=== PATIENT | female | born 1975 | race African-American/Black ===

== ENCOUNTER 2019-08-01 17:45 | Emergency (ER) | payer OTHER ==
[~2019-08-01] VITALS: Ht 152.4 cm; Wt 86.2 kg
[~2019-08-01 17:45] MED LIST: BACTRIM DS TAB1 EACH PO; NAPROSYN500 MG PO; NOHOMEMEDICATIONS; NORCO 5-325 TA1 EACH PO; VICODIN 5-5001 EACH PO
[2019-08-01] MEDS ORDERED: ZANAFLEX4 MG PO (18:23)
[2019-08-01 18:44] VITALS: BP 141/89
== END 2019-08-01 18:46 | disposition home or self-care (01) ==
LOC: ER 17:45
DX: S20.221A Contusion of right back wall of thorax, initial encounter (principal); S20.222A Contusion of left back wall of thorax, initial encounter; V89.2XXA Person injured in unspecified motor-vehicle accident, traffic, initial encounter; Y92.89 Other specified places as the place of occurrence of the external cause; Y99.8 Other external cause status; Y93.89 Activity, other specified